=== PATIENT | female | born 1985 | race Asian ===

== ENCOUNTER → 2022-11-04 | Outpatient (CLI) | payer BC ==
--- NOTE | 2022-11-06 08:29 | MM ---
Reason for Exam: Screening (asymptomatic). Baseline mammogram. Patient History: Menarche at age 10. First Full-Term at age 29. Late child-bearing (after 28). Patient has history of breast feeding. Patient used Hormonal Contraceptives for 1 year. Maternal aunt had breast cancer under age 50. Last menstrual period: 10/24/2022 Risk Values: Fiordaliza 5 year model risk: 0.6%. NCI Lifetime model risk: 14.5%. Prior Study Comparison: Patient's first Mammogram. Tissue Density: The breast tissue is heterogeneously dense. This may lower the sensitivity of mammography. Findings: Analyzed By CAD. There is no suspicious group of microcalcifications or suspicious mass in either breast. No architectural distortion. Overall Assessment: Negative, BI-RAD 1 Management: Screening Mammogram of both breasts in 1 year. A clinical breast exam by your physician is recommended on an annual basis and results should be correlated with mammographic findings. Note on Fiordaliza scores and lifetime risk: 1. A Fiordaliza score greater than 3% is considered moderate risk. If this is the case, consider specialist referral to assess eligibility for a risk reducing agent. If overall lifetime risk for the development of breast cancer is 20% or higher, the patient may qualify for future screening with alternating mammogram and breast MRI. Electronically signed and approved by: Kirit Winkler D.O.
== END | disposition home or self-care (01) ==
LOC: RADMAMWWP 11:17
PROVIDERS: ATTEND Family Medicine
DX: Z12.31 Encounter for screening mammogram for malignant neoplasm of breast (principal); Z80.3 Family history of malignant neoplasm of breast
CPT/HCPCS: 77067